=== PATIENT | female | born 1940 | race African-American/Black ===

== ENCOUNTER 2018-03-04 14:26 | Inpatient (IN) | END 2018-03-16 19:10 | disposition home or self-care (01) | DRG 292 ==

== ENCOUNTER 2018-03-26 05:27 | Emergency (ER) | END 2018-03-26 08:14 | disposition home or self-care (01) ==

== ENCOUNTER 2018-05-01 04:48 | Observation (INO) | END 2018-05-03 20:15 | disposition home or self-care (01) ==

== ENCOUNTER 2018-10-04 23:37 | Emergency (ER) | payer MEDICARE, OTHER ==
[~2018-10-04] VITALS: Wt 64.5 kg
[~2018-10-04 23:37] MED LIST: AMLO-147 PO; ASCO125T PO; ASPI-903 PO; CARB200T3 PO; CARV12.579 PO; CHOL200073 PO; CINN500C9 PO; CLON1PAT TRANSDERM; CYCL1DRO BOTH EYES; FERR325C PO; HYDR200T39 PO; LACT1CAP47 PO; LISI40TA3 PO; LORA0.5T PO; MULT-552 PO; NITR0.4T32 SL; OLOP2.5D BOTH EYES; OMEG-135 PO; OMEP20CA9 PO; VIT1CAPS42 PO; WHEA1POW8 PO; ZINC220C5 PO
[2018-10-05] MEDS ORDERED: hydrALAzine 20 MG INJ IV ONE (01:00)
[2018-10-05] MEDS ORDERED: IPRATROPIUM (NEB) 0.5 MG/2.5 ML AMP NEB STA (02:52)
[2018-10-05] MEDS ORDERED: ALBUTEROL 0.083% (NEB) 2.5 MG/3 ML AMP NEB STA (02:52)
[2018-10-05] MEDS ORDERED: FURO-110 PO (04:49)
[2018-10-05 05:09] VITALS: BP 138/81; PULSE 70; RESP 19
[2018-10-05] MEDS ORDERED: FOLI200T12 PO (05:18)
[2018-10-05] MEDS ORDERED: MOME45OI9 TOP (05:18)
[2018-10-05] MEDS ORDERED: CINN500C9 PO (05:18)
[2018-10-05] MEDS ORDERED: CALC300T4 PO (05:18)
[2018-10-05] MEDS ORDERED: LOPE1LIQ32 PO (05:18)
[2018-10-05] MEDS ORDERED: CHOL100062 PO (05:18)
[2018-10-05] MEDS ORDERED: LISI10TA2 PO (05:18)
--- NOTE | 2018-10-09 01:54 | ERD ---
ER Documentation Chief Complaint Chief Complaint cough, SOB, CWP x2d; SOB worse today. hx pulm fibrosis, CHF HPI This is a very friendly 78-year-old female comes in with complaints of cough shortness from the chest wall pain for 2 days. Shortness breath got worse today. Patient has history of pulmonary fibrosis and CHF but says this feels moderate CHF. She denies any leg swelling or james chest pain patient complains of chest wall tenderness to palpation. Pain is mild. No other current complaints. Does complain of mild orthopnea and dyspnea on exertion as well. She does state that she has this is baseline issues, however there is slightly worse over the past 2 days ROS All systems reviewed and are negative except as per history of present illness. Medications Home Meds Active Scripts Furosemide* (Lasix*) 20 Mg Tablet, 20 MG PO DAILY, #20 TAB Prov:MED POMPA 10/05/18 Nitroglycerin* (Nitroglycerin* SL) 0.4 Mg Tab.subl, 0.4 MG SL Q5MIN PRN for CHEST PAIN, #1 BOTTLE Prov:MELINA RIOS MD 03/26/18 Reported Medications Loperamide Hcl (Imodium A-D) 1 Mg/7.5 Ml Liquid, 1 MG PO PRN for DIARRHEA, ML 10/05/18 Calcium Carbonate* (Tums X-Str) 300 Mg Tab.chew, 300 MG PO, TAB.CHEW 10/05/18 Mometasone Furoate* (Mometasone Furoate* Oint) 0.1% - 45 Gm Oint..gm., 1 APPLIC TOP BID, #1 TUB 10/05/18 Folic Acid/Multivit-Minerals (Women's Multivitamin Gummies) 200 Mcg Tab.chew, 200 MCG PO DAILY, TAB.CHEW 10/05/18 Lisinopril* (Lisinopril*) 10 Mg Tablet, 10 MG PO BID, #30 TAB 10/05/18 Cinnamon Bark (Cinnamon) 500 Mg Capsule, 1000 MG PO BID, CAP 10/05/18 Cholecalciferol* (Vitamin D3*) 1,000 Unit Tablet, 1000 UNIT PO DAILY, TAB 10/05/18 Olopatadine* (Pataday*) 0.2% - 2.5 Ml Drops, 1 DROP BOTH EYES BID, EA 03/01/18 Cyclosporine (RESTASIS) 1 Each Droperette, 1 DROP BOTH EYES Q12, #1 BOX 03/01/18 Ascorbic Acid* (Vitamin C* Chew) 125 Mg Tab.chew, 125 MG PO DAILY, TAB.CHEW 03/01/18 Carvedilol* (Carvedilol*) 12.5 Mg Tablet, 12.5 MG PO BID, #60 TAB 03/01/18 Aspirin* (Aspirin* Chew) 81 Mg Tab.chew, 162 MG PO DAILY, TAB.CHEW 10/29/15 Hydroxychloroquine Sulfate* (Hydroxychloroquine Sulfate*) 200 Mg Tablet, 200 MG PO BID, TAB 10/20/14 Omeprazole* (Prilosec*) 20 Mg Capsule.dr, 20 MG PO BID, CAP 10/20/14 Ferrous Sulfate (Iron) 325 Mg Capsr, 325 MG PO BID 10/20/14 Amlodipine Besylate* (Amlodipine Besylate*) 10 Mg Tablet, 10 MG PO DAILY, TAB 10/20/14 Fish Oil* (Fish Oil*) 1,000 Mg Cap, 1000 MG PO BID 08/06/11 Cinnamon Bark (Cinnamon) 500 Mg Capsule, 1000 MG PO BID 08/06/11 Discontinued Reported Medications Vit C/E/Zn/Coppr/Lutein/Zeaxan (Preservision Areds 2 Softgel) 1 Each Capsule, 1 EACH PO BID, CAP 03/01/18 Cholecalciferol (Vitamin D3) (VITAMIN D-3) 2,000 Unit Capsule, 1000 UNIT PO DAILY, CAP 03/01/18 Wheat Dextrin (Benefiber) 1 Each Powd.pack, 1 EACH PO BID 04/15/16 Lorazepam* (Lorazepam*) 0.5 Mg Tablet, 0.5 MG PO DAILY PRN for ELEVATED BLOOD PRESSURE, TAB FOR BP OVER 180/90 04/15/16 Zinc Sulfate* (Zinc Sulfate*) 220 Mg Cap, 220 MG PO DAILY, CAP 04/15/16 Lactobacillus Acidophilus (Probiotic) 1 Each Capsule, 1 CAP PO DAILY, CAP 10/29/15 Multivitamins* (Once Daily*) 1 Tab Tablet, 1 TAB PO DAILY, TAB 10/20/14 Lisinopril* (Lisinopril*) 40 Mg Tablet, 10 MG PO BID 1/6/12 Discontinued Scripts Carbamazepine (Carbamazepine) 200 Mg Tablet, 200 MG PO BID for 30 Days, #60 TAB Prov:KIMO TREVINO MD 05/03/18 Clonidine (CLONIDINE) 1 Each Patch.tdwk, 1 PATCH TRANSDERM Q7D for 28 Days, #4 Prov:KIMO TREVINO MD 03/16/18 Allergies Allergies: Coded Allergies: Latex, Natural Rubber (Verified Allergy, Unknown, 03/26/18) Penicillins (Verified Allergy, Unknown, 03/01/18) Sulfa (Sulfonamide Antibiotics) (Verified Allergy, Unknown, 03/01/18) Uncoded Allergies: PARFUMES (Allergy, Mild, 08/06/11) PMhx/Soc History of Surgery: Yes (HYSTERECTOMY (1977); LOW GUMS (1995) OOPHERECTOMY, HEMICOLECTOMY (2011)) Anesthesia Reaction: No Hx Neurological Disorder: Yes (STROKE; TIA x6 ([id number])) Hx Respiratory Disorders: No Hx Cardiac Disorders: Yes (HTN; ANGINA; CHF) Hx Psychiatric Problems: No Hx Miscellaneous Medical Probl: Yes (TIA, HTN, GERD, systemic Lupus erythematosus, DM) Hx Alcohol Use: No Hx Substance Use: No Hx Tobacco Use: No Smoking Status: Never smoker Physical Exam Physical Exam Const: No acute distress Head: Atraumatic Eyes: Normal Conjunctiva ENT: Normal External Ears, Nose and Mouth. Neck: Full range of motion. No meningismus. Resp: Clear to auscultation bilaterally Cardio: Regular rate and rhythm, no murmurs Abd: Soft, non tender, non distended. Normal bowel sounds Skin: No petechiae or rashes Back: No midline or flank tenderness Ext: No cyanosis, or edema Neur: Awake and alert Psych: Normal Mood and Affect Result Diagram: 10/05/18 0154 10/05/18 0154 Results 24 hrs Laboratory Tests Test 10/05/18 01:51 10/05/18 01:54 POC Venous Lactate 1.3 mmol/L White Blood Count 6.4 10^3/ul Red Blood Count 4.08 10^6/ul Hemoglobin 10.4 g/dl Hematocrit 32.4 % Mean Corpuscular Volume 79.4 fl Mean Corpuscular Hemoglobin 25.5 pg Mean Corpuscular Hemoglobin Concent 32.1 g/dl Red Cell Distribution Width 18.0 % Platelet Count 291 10^3/UL Mean Platelet Volume 9.6 fl Immature Granulocytes % 0.600 % Neutrophils % 65.2 % Lymphocytes % 24.3 % Monocytes % 7.2 % Eosinophils % 2.2 % Basophils % 0.5 % Nucleated Red Blood Cells % 0.0 /100WBC Immature Granulocytes # 0.040 10^3/ul Neutrophils # 4.2 10^3/ul Lymphocytes # 1.6 10^3/ul Monocytes # 0.5 10^3/ul Eosinophils # 0.1 10^3/ul Basophils # 0.0 10^3/ul Nucleated Red Blood Cells # 0.0 10^3/ul Prothrombin Time 12.8 Sec Prothrombin Time Ratio 1.0 INR International Normalized Ratio 0.95 Activated Partial Thromboplast Time 27.6 Sec Sodium Level 141 mmol/L Potassium Level 4.2 mmol/L Chloride Level 100 mmol/L Carbon Dioxide Level 33 mmol/L Anion Gap 8 Blood Urea Nitrogen 14 mg/dl Creatinine 1.00 mg/dl Est Glomerular Filtrat Rate mL/min mL/min Glucose Level 120 mg/dl Calcium Level 9.1 mg/dl Total Bilirubin 0.1 mg/dl Direct Bilirubin 0.00 mg/dl Indirect Bilirubin 0.1 mg/dl Aspartate Amino Transf (AST/SGOT) 29 IU/L Alanine Aminotransferase (ALT/SGPT) < 6 IU/L Alkaline Phosphatase 141 IU/L Troponin I < 0.012 ng/ml B-Type Natriuretic Peptide 1960 PG/ML Total Protein 9.2 g/dl Albumin 3.8 g/dl Globulin 5.40 g/dl Albumin/Globulin Ratio 0.70 Current Medications Medications Dose Sig/Shonda Start Time Status Last (Trade) Ordered Route PRN Stop Time Admin Dose Reason Admin Hydralazine 20 mg ONCE ONCE 10/05/18 DC 10/05/18 HCl IV 01:00 10/05/18 02:02 (Apresoline) 01:01 Albuterol 5 mg ONCE STAT 10/05/18 DC 10/05/18 (Proventil NEB 02:52 10/05/18 03:03 0.083% (Neb)) 02:53 Ipratropium 0.5 mg ONCE STAT 10/05/18 DC 10/05/18 [place] NEB 02:52 10/05/18 03:03 (Atrovent 02:53 0.02% (Neb)) Procedures/MDM Emergency department course: Patient seen and evaluated. Placed in bed from evaluation. Patient continues school lunch monitor and continuous pulse oximeter. Had intravenous access. Blood work done. He was given a breathing treatment at her request. Diagnostic studies: EKG: Rate/Rhythm: [Normal Sinus Rhythm] QRS, ST, T-waves: [No changes consistent w/ acute ischemia] Impression: [No evidence of ischemia or arrhythmia] Chest X-ray 1V Interpreted by me: Soft Tissue: No acute abnormalities Bones: No acute abnormalities Mediastinum/Cardiac Silhouette/Lungs: Mild increased interstitial fluid markings. Impression: CHF Medical decision making: Patient's respiratory status has stabilized while in the department and is appropriate for outpatient work up. Exam and work up not consistent w/ impending respiratory failure or cardiovascular collapse. Departure Diagnosis: Primary Impression: Chronic diastolic (congestive) heart failure Condition: Fair Patient Instructions: How Pressure Ulcers Form, Pressure Ulcer MED POMPA Oct 09, 2018 01:54
== END 2018-10-05 05:10 | disposition home or self-care (01) ==
LOC: E/R 23:37
DX: I11.0 Hypertensive heart disease with heart failure (principal); I50.32 Chronic diastolic (congestive) heart failure; E11.9 Type 2 diabetes mellitus without complications; Z79.82 Long term (current) use of aspirin; Z86.73 Personal history of transient ischemic attack (TIA), and cerebral infarction without residual deficits; Z91.040 Latex allergy status
CPT/HCPCS: 36415; 71045; 80053; 83605; 83880; 84484; 85025; 85610; 85730; 87040; 93005; 94664; 96374; 99285; J0360